=== PATIENT | male | born 1945 | race Caucasian/White ===

== ENCOUNTER 2016-07-30 11:19 | Day surgery (SDC) | payer OTHER ==
--- NOTE | ~2016-07-30 | EGD ---
EGD REPORT [facility] [address] [address] NAME: SAMI GUAN : [birth year] STATUS : REG [facility]#: [id number] AGE: 71 ADM/REG DATE : 07/30/16 MR#: [id number] REPORT SERV DATE: 07/30/16 DICTATED BY: SAMI DELGADO DATE: 07/30/16 REPORT STATUS : Draft TRANSCRIBED BY: [employer] DATE: 07/30/16 [facility] Patient Name: Sami Guan Date of : 1945 Attending MD: SAMI DELGADO MD Procedure Date No Time: 07/30/2016 Procedure: Colonoscopy Indications: Screening for colorectal malignant neoplasm Referring MD: KANDIS ROME Medicines: Monitored Anesthesia Care Complications: No immediate complications. Procedure: Pre-Anesthesia Assessment: - ASA Grade Assessment: III - A patient with severe systemic disease. After I obtained informed consent, the scope was passed under direct vision. Throughout the procedure, the patient's blood pressure, pulse, and oxygen saturations were monitored continuously. The CF [id number] was introduced through the anus and advanced to the cecum, identified by appendiceal orifice and ileocecal valve. The colonoscopy was performed without difficulty. The patient tolerated the procedure well. The quality of the bowel preparation was good. Findings: The digital rectal exam was normal. Pertinent negatives include no palpable rectal lesions. A sessile polyp was found in the descending colon. The polyp was 6 mm in size. The polyp was removed with a cold snare. Resection and retrieval were complete. Hemorrhoids were found during retroflexion and were moderate. Impression: - One 6 mm polyp in the descending colon. Resected and retrieved. - Hemorrhoids. Recommendation: - Patient has a contact number available for emergencies. The signs and symptoms of potential delayed complications were discussed with the patient. Return to normal activities tomorrow. Written discharge instructions were provided to the patient. - Regular diet. - Continue present medications. Procedure Code(s): --- Professional --- EGD REPORT [facility] [address] [address] NAME: SAMI GUAN : [birth year] STATUS : REG [facility]#: [id number] AGE: 71 ADM/REG DATE : 07/30/16 MR#: [id number] REPORT SERV DATE: 07/30/16 DICTATED BY: SAMI DELGADO DATE: 07/30/16 REPORT STATUS : Draft TRANSCRIBED BY: [employer] DATE: 07/30/16 11250, Colonoscopy, flexible, proximal to splenic flexure; with removal of tumor(s), polyp(s), or other lesion(s) by snare technique Diagnosis Code(s): --- Professional --- D12.4, Benign neoplasm of descending colon K64.9, Unspecified hemorrhoids Z12.11, Encounter for screening for malignant neoplasm of colon CPT copyright 2013 [employer]. All rights reserved. The codes documented in this report are preliminary and upon exterminator termite review may be revised to meet current compliance requirements. SAMI DELGADO MD 07/30/2016 2:13 PM This report has been signed electronically. Number of Addenda: 0 Note Initiated On: 07/30/2016 1:33 PM Scope Withdrawal Time 0 hours 11 minutes 28 seconds [id number] [id number]
[~2016-07-30 11:19] MED LIST: AMB5 PO; ASAB PO; D 5000 PO; FOLIC PO; LIPITOR40 PO; PLAVIX PO; ZOCOR20 PO; [UNRECOGNIZED DRUG - REMARK] PO
== END 2016-07-30 23:59 | disposition home or self-care (01) ==
LOC: DMU 11:19
PROVIDERS: Internal Medicine Gastroenterology
PROC: 0DBM8ZZ Excision of Descending Colon, Via Natural or Artificial Opening Endoscopic (ICD-10-PCS; principal; 2016-07-30 13:00)
DX: Z12.11 Encounter for screening for malignant neoplasm of colon (principal); D12.4 Benign neoplasm of descending colon; K64.9 Unspecified hemorrhoids; I48.91 Unspecified atrial fibrillation; Z86.73 Personal history of transient ischemic attack (TIA), and cerebral infarction without residual deficits; Z79.02 Long term (current) use of antithrombotics/antiplatelets; Z79.899 Other long term (current) drug therapy
CPT/HCPCS: 88305